=== PATIENT | female | born 1960 | race African-American/Black ===

== ENCOUNTER 2022-11-13 15:17 | Emergency (ER) | payer OTHER ==
[2022-11-13 15:27] VITALS: RESP 17; TEMP 98; BMI 20.5
[2022-11-13] MEDS ORDERED: ACETAMINOPHEN 500 MG TABLET (FP) PO ONE (15:39)
[2022-11-13] MEDS ORDERED: ACETAMINOPHEN 500 MG TABLET (FP) ONE (15:41)
[2022-11-13 16:43] VITALS: BP 163/85; PULSE 89
== END 2022-11-13 19:07 | disposition left against medical advice (07) ==
LOC: JERFT 15:17
DX: S20.222A Contusion of left back wall of thorax, initial encounter (principal); M54.9 Dorsalgia, unspecified; V78.4XXA Person boarding or alighting from bus injured in noncollision transport accident, initial encounter; Y93.I9 Activity, other involving external motion; Y92.811 Bus as the place of occurrence of the external cause
CPT/HCPCS: 71046-TC-FY; 99283-25

== ENCOUNTER 2022-12-09 11:36 | Emergency (ER) | payer OTHER ==
[2022-12-09 11:51] VITALS: BP 161/81; PULSE 68; RESP 18; TEMP 98.6; BMI 20.5
== END 2022-12-09 13:17 | disposition home or self-care (01) ==
LOC: JERFT 11:36
DX: L98.9 Disorder of the skin and subcutaneous tissue, unspecified (principal)
CPT/HCPCS: 99282-25